=== PATIENT | male | born 1995 | race Caucasian/White ===

== ENCOUNTER 2018-03-24 21:43 | Emergency (ER) | payer SELFPAY ==
--- NOTE | 2018-03-24 22:02 | Emergency Department Record ---
History of Present Illness - General Chief Complaint: Laceration(s) Stated Complaint: WC / LACERATION ON LT HAND Time Seen by Provider: 03/24/18 21:57 Source: Patient Mode of Arrival: Ambulatory Limitations: No limitations - History of Present Illness Initial Commments: 22 yo male presents to ED for evaluation of a laceration to the left palm that occurred while at work as a result of broken glass. Patient denies FB sensation , reports bleeding is controlled. Patient reports that his tetanus is UTD, denies health problems at his baseline. Onset/Timin -: Hour(s) Extremity Location: Left: Hand Place: Work Context: Accidental, Sharp object use Associated Symptoms: None Treatments Prior to Arrival: Bandage - [place] Coma Scale Eye Response: (4) Open spontaneously Motor Response: (6) Obeys commands Verbal Response: (5) Oriented [place] Total: 15 - Related Data Hx Tetanus Toxoid Vaccination: Yes Year of Tetanus Vaccination: 2016 Home Medications Medication Instructions Recorded Confirmed Last Taken No Home Med [NO HOME MEDS] 03/24/18 03/24/18 Unknown Allergies Allergy/AdvReac Type Severity Reaction Status Date / Time No Known Drug Allergies Allergy Verified 03/24/18 21:59 Review of Systems Constitutional: Denies: Chills, Fever, Malaise, Night sweats Eyes: Denies: Eye discharge, Eye pain ENT: Denies: Congestion, Ear pain, Epistaxis Respiratory: Denies: Cough, Dyspnea Cardiovascular: Denies: Chest pain, Dyspnea on exertion Endocrine: Denies: Fatigue, Heat or cold intolerance Gastrointestinal: Denies: Abdominal pain, Nausea, Vomiting Genitourinary: Denies: Incontinence, Retention Musculoskeletal: Denies: Arthralgia, Back pain, Gout, Joint swelling Skin: Reports: Other (Laceration to the palm of the hand). Denies: Bruising, Change in color Neurological: Denies: Abnormal gait, Confusion, Headache, Seizure Psychiatric: Denies: Anxiety Hematological/Lymphatic: Denies: Anemia, Blood Clots Past Medical History - SOCIAL HISTORY Smoking Status: Never smoker Alcohol Use: Occasional Drug Use: None - RESPIRATORY Hx Respiratory Disorders: No - CARDIOVASCULAR Hx Cardio Disorders: No - NEURO Hx Neuro Disorders: No - GI Hx GI Disorders: No - Hx Genitourinary Disorders: No - ENDOCRINE Hx Endocrine Disorders: No - MUSCULOSKELETAL Hx Musculoskeletal Disorders: No - PSYCH Hx Psych Problems: No - HEMATOLOGY/ONCOLOGY Hx Hematology/Oncology Disorders: No Family Medical History Any Significant Family History?: No Family Hx Comment (NOT TO BE USED IN PLACE OF ITEMS BELOW): denies Physical Exam - General General Appearance: Alert, Oriented x3, Cooperative, No acute distress Limitations: No limitations - Head Head exam: Atraumatic, Normocephalic, Normal inspection Head exam detail: negative: Abrasion, Contusion, Nguyen's sign, General tenderness, Hematoma, Laceration - Eye Eye exam: Normal appearance. negative: Conjunctival injection, Periorbital swelling, Periorbital tenderness, Scleral icterus - ENT Ear exam: negative: Auricular hematoma, Auricular trauma Nasal Exam: negative: Active bleeding, Discharge, Dried blood, Foreign body Mouth exam: negative: Drooling, Laceration, Muffled voice, Tongue elevation - Neck Neck exam: Normal inspection. negative: Meningismus, Tenderness - Respiratory Respiratory exam: Normal lung sounds bilaterally. negative: Rales, Respiratory distress, Rhonchi, Stridor - Cardiovascular Cardiovascular Exam: Regular rate, Normal rhythm, Normal heart sounds Peripheral Pulses: 3+: Radial (L) - GI/Abdominal GI/Abdominal exam: Soft. negative: Rebound, Rigid, Tenderness - Rectal Rectal exam: Deferred - exam: Deferred - Extremities Extremities exam: Tenderness, Other (1.0 cm laceration to the mid-palm, no active bleeding present, no obvious FB present on examination.). negative: Calf tenderness, Pedal edema - Back Back exam: Denies: CVA tenderness (R), CVA tenderness (L) - Neurological Neurological exam: Alert, Normal gait, Oriented X3 - Psychiatric Psychiatric exam: Normal affect, Normal mood - Skin Skin exam: Normal color. negative: Abrasion Type of lesion: negative: abrasion Course - Reevaluation(s) Reevaluation #1: 03/24/18 22:11 Left Hand: Negative for FB Procedure Note: 1.0 cm laceration to the left palm, bleeding controlled. Wound was cleaned and prepped in sterile fashion, no residual FB identified on examination. Laceration was repaired with Dermabond solution without complication. Patient tolerated the procedure well. Disposition Disposition: Discharge Clinical Impression: Laceration of hand Qualifiers: Encounter type: initial encounter Foreign body presence: without foreign body Laterality: left Qualified Code(s): S61.412A - Laceration without foreign body of left hand, initial encounter Disposition: Home, Self-Care Condition: (2) Stable Instructions: Skin Adhesive Care (ED) Additional Instructions: Return to ED if your symptoms worsen or if you have any concerns. Tissue adhesive will release in 3-5 days. Follow-up with your family doctor in 1 week as directed. Forms: Patient Portal Access Time of Disposition: 22:02 Quality - Quality Measures Quality Measures: N/A - Blood Pressure Screening Does Patient Have Any of the Following: No Blood Pressure Classification: Normal BP Reading Systolic Measurement: 115 Diastolic Measurement: 74 Screening for High Blood Pressure: < Normal BP, F/U Not Required > [[id number]]
--- NOTE | 2018-03-26 13:25 | RADIOLOGY REPORT ---
EXAM: LEFT HAND HISTORY: PATIENT HAS LACERATION FROM BROKEN WINE GLASS. EVALUATE FOR FOREIGN BODY. TECHNIQUE: Two views of the left hand are provided without comparison examinations. FINDINGS: There is no radiographic evidence of a fracture or dislocation of the left hand. There is soft tissue swelling identified at the soft tissue medial to the fifth metacarpal. No radiopaque foreign bodies are identified. IMPRESSION: SOFT TISSUE SWELLING IS NOTED AT THE SOFT TISSUE MEDIAL TO THE FIFTH METACARPAL WITHOUT RADIOGRAPHIC EVIDENCE OF A FRACTURE OR DISLOCATION OF THE OSSEOUS STRUCTURES. NO RADIOPAQUE FOREIGN BODIES ARE IDENTIFIED. JOB NUMBER: [id number] [facility]
== END 2018-03-24 22:16 | disposition home or self-care (01) ==
LOC: ER 21:43
DX: S61.412A Laceration without foreign body of left hand, initial encounter (principal); W25.XXXA Contact with sharp glass, initial encounter; Y92.511 Restaurant or cafe as the place of occurrence of the external cause; Y99.0 Civilian activity done for income or pay
CPT/HCPCS: 99283